=== PATIENT | male | born 1985 | race Caucasian/White ===

== ENCOUNTER 2019-10-12 22:26 | Inpatient (IN) | payer MEDICAID ==
[~2019-10-12] VITALS: Ht 180.3 cm; Wt 68.7 kg
[~2019-10-12 22:26] MED LIST: CEPH-582 PO; LURA40 PO
[2019-10-13] VITALS (8 sets, daily range): BP systolic 110–125; BP diastolic 60–70
[2019-10-13 01:00] LABS: BASOPHILS % (AUTO) 0.5 % (0.0-2.0); EOSINOPHILS % (AUTO) 0.7 % (1.0-6.0); HEMATOCRIT 37.3 % (41-53); HEMOGLOBIN 12.9 g/dL (13.5-17.5); LYMPHOCYTES # (AUTO) 1.5 K/uL (1.0-4.8); LYMPHOCYTES % (AUTO) 30.6 % (22.0-44.0); MEAN CORPUSCULAR HGB CONC 34.5 G/dL (31.0-37.0); MEAN CORPUSCULAR VOLUME 90 fL (80-100); MONOCYTES # (AUTO) 0.5 K/uL (0.1-1.0); MONOCYTES % (AUTO) 10.3 % (2.0-9.0); NEUTROPHILS # (AUTO) 2.9 K/uL (1.8-7.7); NEUTROPHILS % (AUTO) 57.9 % (40.0-70.0); PLATELET COUNT (AUTO) 269 K/uL (150-450); RED BLOOD CELL COUNT(AUTO) 4.15 MIL/uL (4.50-5.90); RED CELL DISTRIBUTION WIDTH 12.6 % (11.5-14.5)
[2019-10-13 01:07] LABS: ANION GAP 5 mmol/L (8-16); CALCIUM, TOTAL 8.5 mg/dL (8.8-10.5); CARBON DIOXIDE 31 mmol/L (22-29); CHLORIDE 102 mmol/L (98-107); CREATININE 1.01 mg/dL (0.60-1.30); GLOMERULAR FILTR. RATE CALC > 60 mL/min (>60); GLUCOSE,RANDOM 113 mg/dL (70-110); POTASSIUM 3.5 mmol/L (3.5-5.1); SODIUM SERUM 138 mmol/L (136-145); UREA NITROGEN, BLOOD 15 mg/dL (7-18)
[2019-10-13 01:13] LABS: ALANINE AMINOTRANSFERASE 53 U/L (12-78); ALKALINE PHOSPHATASE 75 U/L (46-116); ASPARTATE AMINOTRANSFERASE 38 U/L (15-37); BILIRUBIN,TOTAL 0.4 mg/dL (0.1-1.0)
[2019-10-13] MEDS ORDERED: LORazepam 1 MG TABLET PO PRN (03:45)
[2019-10-13] MEDS ORDERED: ZOLPIDEM TARTRATE 10 MG TABLET PO PRN (03:45)
[2019-10-13] MEDS ORDERED: HALOPERIDOL 5 MG TABLET PO PRN (03:45)
[2019-10-13] MEDS ORDERED: INFLUENZA VIRUS VACCINE QVS 2019-20 (3YR+)/PF 60 MCG/0.5 ML SYRINGE IM ONE (06:00)
[2019-10-13] MEDS ORDERED: IBUPROFEN 400 MG TABLET PO PRN (07:30)
[2019-10-13] MEDS ORDERED: LOPERAMIDE HCL 2 MG CAPSULE PO PRN (07:30)
[2019-10-13] MEDS ORDERED: ALBUTEROL SULFATE HFA 90 MCG/PUFF 8 GM INHALER IH PRN (07:30)
[2019-10-13] MEDS ORDERED: ACETAMINOPHEN 325 MG TABLET PO PRN (07:30)
[2019-10-13] MEDS ORDERED: PETROLATUM,WHITE 28 GM JELLY TP PRN (07:30)
[2019-10-13] MEDS ORDERED: CloNIDine HCL 0.1 MG TABLET PO PRN ×2 (07:30→16:00)
[2019-10-13] MEDS ORDERED: NICOTINE 14 MG/24 HOUR PATCH TD PRN (07:30)
[2019-10-13] MEDS ORDERED: MAGNESIUM HYDROXIDE SUSPENSION 30 ML UDCUP PO PRN (07:30)
[2019-10-13] MEDS ORDERED: GuaiFENesin/D-METHORPHAN [SUGAR-FREE] 200-20MG/10 ML SYRUP UDCUP PO PRN (07:30)
[2019-10-13] MEDS ORDERED: DOCUSATE SODIUM 100 MG CAPSULE PO PRN (07:30)
[2019-10-13] MEDS ORDERED: ONDANSETRON HCL 4 MG TABLET PO PRN (07:30)
[2019-10-13] MEDS ORDERED: MAG HYDROX/AL HYDROX/SIMETH ES 30 ML SUSPENSION UDCUP PO PRN ×2 (07:30→16:00)
[2019-10-13] MEDS ORDERED: HydrOXYzine PAMOATE 50 MG CAPSULE PO PRN (16:00)
[2019-10-13] MEDS ORDERED: IBUPROFEN 600 MG TABLET PO PRN (16:00)
[2019-10-13] MEDS: CloNIDine HCL 0.1 MG TABLET PO SCH ×2 (16:38→21:20)
[2019-10-13] MEDS: BACITRACIN 28.4 GM OINTMENT TP SCH (16:39)
[2019-10-13] MEDS: CarBAMazepine 200 MG TABLET PO SCH (21:20)
[2019-10-14] VITALS (8 sets, daily range): BP systolic 107–128; BP diastolic 60–88
[2019-10-14] MEDS: CloNIDine HCL 0.1 MG TABLET PO SCH ×4 (06:36→20:21)
[2019-10-14 08:32] LABS: BASOPHILS % (AUTO) 0.4 % (0.0-2.0); HEMATOCRIT 38.2 % (41-53); HEMOGLOBIN 13.1 g/dL (13.5-17.5); LYMPHOCYTES # (AUTO) 1.7 K/uL (1.0-4.8); LYMPHOCYTES % (AUTO) 29.7 % (22.0-44.0); MEAN CORPUSCULAR HEMOGLOBIN 31.3 pg (26.0-34.0); MEAN CORPUSCULAR HGB CONC 34.3 G/dL (31.0-37.0); MEAN CORPUSCULAR VOLUME 91 fL (80-100); MONOCYTES # (AUTO) 0.4 K/uL (0.1-1.0); MONOCYTES % (AUTO) 7.3 % (2.0-9.0); NEUTROPHILS # (AUTO) 3.6 K/uL (1.8-7.7); NEUTROPHILS % (AUTO) 61.6 % (40.0-70.0); PLATELET COUNT (AUTO) 260 K/uL (150-450); RED BLOOD CELL COUNT(AUTO) 4.19 MIL/uL (4.50-5.90); RED CELL DISTRIBUTION WIDTH 12.7 % (11.5-14.5)
[2019-10-14 08:40] LABS: HEMOGLOBIN A1C 5.5 % (4.5-6.2)
[2019-10-14] MEDS: BACITRACIN 28.4 GM OINTMENT TP SCH ×2 (08:46→17:37)
[2019-10-14] MEDS: CarBAMazepine 200 MG TABLET PO SCH ×2 (08:46→20:20)
[2019-10-14] MEDS: FLUoxetine HCL 20 MG CAPSULE PO SCH (08:46)
[2019-10-14 08:57] LABS: ALANINE AMINOTRANSFERASE 46 U/L (12-78); ALBUMIN 2.8 g/dL (3.4-5.0); ALKALINE PHOSPHATASE 70 U/L (46-116); ANION GAP 5 mmol/L (8-16); ASPARTATE AMINOTRANSFERASE 26 U/L (15-37); BILIRUBIN,TOTAL 0.4 mg/dL (0.1-1.0); CALCIUM, TOTAL 8.6 mg/dL (8.8-10.5); CARBON DIOXIDE 29 mmol/L (22-29); CHLORIDE 104 mmol/L (98-107); CHOL/HDL RATIO 2.8 (4.2-7.3); CHOLESTEROL 141 mg/dL (131-200); CREATININE 0.72 mg/dL (0.60-1.30); FREE T4 (FREE THYROXINE) 1.39 ng/dL (0.76-1.46); GLOMERULAR FILTR. RATE CALC > 60 mL/min (>60); GLUCOSE,RANDOM 105 mg/dL (70-110); HDL CHOLESTEROL 51 mg/dL (40-60); LDL CHOL (CALC.) 80 mg/dL (0-130); POTASSIUM 4.5 mmol/L (3.5-5.1); SODIUM SERUM 138 mmol/L (136-145); TOTAL PROTEIN, SERUM 6.4 g/dL (6.4-8.2); TRIGLYCERIDES 48 mg/dL (15-150); UREA NITROGEN, BLOOD 10 mg/dL (7-18)
[2019-10-15] VITALS (9 sets, daily range): BP systolic 107–127; BP diastolic 60–71
[2019-10-15] MEDS: CloNIDine HCL 0.1 MG TABLET PO SCH ×4 (06:39→21:13)
[2019-10-15] MEDS: CarBAMazepine 200 MG TABLET PO SCH ×2 (08:43→21:14)
[2019-10-15] MEDS: FLUoxetine HCL 20 MG CAPSULE PO SCH (08:43)
[2019-10-15] MEDS: BACITRACIN 28.4 GM OINTMENT TP SCH ×2 (08:48→16:21)
[2019-10-16] VITALS (7 sets, daily range): BP systolic 104–118; BP diastolic 62–71
[2019-10-16] MEDS: CloNIDine HCL 0.1 MG TABLET PO SCH ×4 (05:58→21:08)
[2019-10-16] MEDS: BACITRACIN 28.4 GM OINTMENT TP SCH ×2 (08:35→16:23)
[2019-10-16] MEDS: FLUoxetine HCL 20 MG CAPSULE PO SCH (08:35)
[2019-10-16] MEDS: CarBAMazepine 200 MG TABLET PO SCH ×2 (08:35→21:08)
[2019-10-16] MEDS: CEPHALEXIN MONOHYDRATE 500 MG CAPSULE PO SCH ×2 (12:33→16:23)
[2019-10-17 06:19] VITALS: BP 110/78
[2019-10-17 06:20] VITALS: BP 110/78
[2019-10-17] MEDS: CloNIDine HCL 0.1 MG TABLET PO SCH ×4 (06:45→21:00)
[2019-10-17 08:17] VITALS: BP 111/67
[2019-10-17] MEDS: FLUoxetine HCL 20 MG CAPSULE PO SCH (08:19)
[2019-10-17] MEDS: CarBAMazepine 200 MG TABLET PO SCH ×2 (08:19→21:00)
[2019-10-17] MEDS: CEPHALEXIN MONOHYDRATE 500 MG CAPSULE PO SCH ×3 (08:19→16:31)
[2019-10-17] MEDS: BACITRACIN 28.4 GM OINTMENT TP SCH ×2 (08:19→16:31)
[2019-10-17 12:25] VITALS: BP 116/64
[2019-10-17 16:10] VITALS: BP 105/66
[2019-10-17 21:00] VITALS: BP 102/69
[2019-10-18 05:59] VITALS: BP 110/62
[2019-10-18 06:01] VITALS: BP 110/62
[2019-10-18] MEDS: CloNIDine HCL 0.1 MG TABLET PO SCH ×4 (06:29→21:29)
[2019-10-18 08:00] VITALS: BP 118/65
[2019-10-18] MEDS: FLUoxetine HCL 20 MG CAPSULE PO SCH (08:18)
[2019-10-18] MEDS: BACITRACIN 28.4 GM OINTMENT TP SCH ×2 (08:18→17:00)
[2019-10-18] MEDS: CarBAMazepine 200 MG TABLET PO SCH ×2 (08:18→20:52)
[2019-10-18] MEDS: CEPHALEXIN MONOHYDRATE 500 MG CAPSULE PO SCH ×3 (08:18→18:05)
[2019-10-18 11:33] VITALS: BP 120/81
[2019-10-18 16:13] VITALS: BP 112/74
[2019-10-19] MEDS: CloNIDine HCL 0.1 MG TABLET PO SCH ×4 (06:00→20:46)
[2019-10-19 06:41] VITALS: BP 130/70
[2019-10-19 08:08] VITALS: BP 119/65
[2019-10-19] MEDS: FLUoxetine HCL 20 MG CAPSULE PO SCH (08:25)
[2019-10-19] MEDS: CEPHALEXIN MONOHYDRATE 500 MG CAPSULE PO SCH ×3 (08:25→16:07)
[2019-10-19] MEDS: CarBAMazepine 200 MG TABLET PO SCH ×2 (08:26→20:02)
[2019-10-19] MEDS: BACITRACIN 28.4 GM OINTMENT TP SCH ×2 (08:43→17:47)
[2019-10-19 16:38] VITALS: BP 134/75
[2019-10-20 01:45] VITALS: BP 128/75
[2019-10-20] MEDS: CloNIDine HCL 0.1 MG TABLET PO SCH ×3 (06:00→16:51)
[2019-10-20] MEDS: CarBAMazepine 200 MG TABLET PO SCH ×2 (08:20→20:15)
[2019-10-20] MEDS: CEPHALEXIN MONOHYDRATE 500 MG CAPSULE PO SCH ×3 (08:20→16:50)
[2019-10-20] MEDS: FLUoxetine HCL 20 MG CAPSULE PO SCH (08:20)
[2019-10-20] MEDS: BACITRACIN 28.4 GM OINTMENT TP SCH ×2 (08:21→16:51)
[2019-10-20 08:47] VITALS: BP 113/63
[2019-10-20 16:59] VITALS: BP 125/70
[2019-10-21 01:12] VITALS: BP 124/68
[2019-10-21 06:36] VITALS: BP 124/68
[2019-10-21 08:18] VITALS: BP 116/76
[2019-10-21] MEDS: BACITRACIN 28.4 GM OINTMENT TP SCH (08:18)
[2019-10-21] MEDS: FLUoxetine HCL 20 MG CAPSULE PO SCH (08:18)
[2019-10-21] MEDS: CEPHALEXIN MONOHYDRATE 500 MG CAPSULE PO SCH ×2 (08:18→12:08)
[2019-10-21] MEDS: CarBAMazepine 200 MG TABLET PO SCH (08:18)
[2019-10-21] MEDS ORDERED: FLUO-191 PO (09:23)
[2019-10-21] MEDS ORDERED: CARB200T6 PO (09:23)
[2019-10-21] MEDS ORDERED: CEPH500 PO ×2 (09:52→09:55)
== END 2019-10-21 13:34 | disposition home or self-care (01) | DRG 750 ==
LOC: EMS 22:28 → B2S 10-13 03:19
DX: F25.1 Schizoaffective disorder, depressive type (principal); E83.51 Hypocalcemia; R45.851 Suicidal ideations; Z59.0 Homelessness; F11.23 Opioid dependence with withdrawal; F17.210 Nicotine dependence, cigarettes, uncomplicated; F10.10 Alcohol abuse, uncomplicated; F15.20 Other stimulant dependence, uncomplicated; F12.90 Cannabis use, unspecified, uncomplicated; F41.9 Anxiety disorder, unspecified; Z79.899 Other long term (current) drug therapy
CPT/HCPCS: 83036; 84439; 84443; 87081; 90686; G0480